=== PATIENT | male | born 1950 | race African-American/Black ===

== ENCOUNTER 2022-10-03 04:09 | Day surgery (SDC) | payer OTHER ==
[2022-09-29 13:36] VITALS: BMI 27.3
[2022-10-03 09:08] VITALS: RESP 18
[2022-10-03] MEDS ORDERED: MIDAZOLAM HCL 2 MG/2 ML SINGLE DOSE VIAL ONE (12:47)
[2022-10-03] MEDS ORDERED: ONDANSETRON 4 MG/2 ML VIAL ONE (12:47)
[2022-10-03] MEDS ORDERED: FENTANYL CITRATE/PF 50 MCG/ML VIAL ONE (12:47)
[2022-10-03 14:18] VITALS: BP 133/85; PULSE 56; TEMP 97.9
== END 2022-10-03 14:18 | disposition home or self-care (01) ==
LOC: JASU-SURG 04:09
PROVIDERS: ATTEND Urology
PROC: 0TF4XZZ Fragmentation in Left Kidney Pelvis, External Approach (ICD-10-PCS; principal; 2022-10-03 11:00)
DX: N20.0 Calculus of kidney (principal)

== ENCOUNTER 2024-02-13 12:04 | Emergency (ER) | payer OTHER ==
[2024-02-13] MEDS ORDERED: SODIUM BICARBONATE 8.4% 50 MEQ/50 ML DISP.SYRIN ONE ×2 (12:10→12:15)
[2024-02-13] MEDS ORDERED: SODIUM BICARBONATE 8.4% 50 MEQ/50 ML VIAL ONE (12:15)
[2024-02-13 12:27] VITALS: BP 00/00; PULSE 0; RESP 0; BMI 35.4
== END 2024-02-13 14:26 | disposition expired ==
LOC: JER 12:04
PROC: 5A1221Z Performance of Cardiac Output, Continuous (ICD-10-PCS; principal; 2024-02-13)
DX: I46.9 Cardiac arrest, cause unspecified (principal)
CPT/HCPCS: 99285-25